=== PATIENT | female | born 2000 | race Caucasian/White ===

== ENCOUNTER 2019-12-14 15:06 | Emergency (ER) | payer OTHER ==
[~2019-12-14] VITALS: Ht 157.5 cm; Wt 48.5 kg
[2019-12-14] MEDS ORDERED: DOXYCYCLINE 10100 MG PO (17:44)
[2019-12-14] MEDS ORDERED: TESSALON PERLE100 MG PO (17:44)
[2019-12-14 17:45] VITALS: BP 104/69
== END 2019-12-14 19:16 | disposition home or self-care (01) ==
LOC: ER 15:06
DX: J10.00 Influenza due to other identified influenza virus with unspecified type of pneumonia (principal)